=== PATIENT | male | born 1980 | race Caucasian/White ===

== ENCOUNTER 2021-06-28 16:52 | Emergency (ER) | payer OTHER ==
[2021-06-28] MEDS ORDERED: CYCLOBENZAPRINE10 MG PO (19:53)
[2021-06-28] MEDS ORDERED: MEDROL 4MG DOSEP4 MG PO (19:53)
== END 2021-06-28 20:13 | disposition home or self-care (01) ==
LOC: FER 16:52
DX: M54.41 Lumbago with sciatica, right side (principal); M62.838 Other muscle spasm; X50.1XXA Overexertion from prolonged static or awkward postures, initial encounter
CPT/HCPCS: 72131; 96372; J1100; J1885